=== PATIENT | female | born 1965 | race African-American/Black ===

== ENCOUNTER 2017-05-05 08:29 | Emergency (ER) | payer MEDICAID, OTHER ==
[~2017-05-05] VITALS: Ht 160 cm; Wt 87.3 kg
[~2017-05-05 08:29] MED LIST: CARV6 PO; LISI-661 PO; LORA0.5T2 PO; TYL3 PO
[2017-05-05 08:42] LABS: GLUCOSE,POINT OF CARE 119 MG/DL (70-110)
[2017-05-05] MEDS ORDERED: SACU1TAB7 PO (08:42)
[2017-05-05] MEDS ORDERED: FURO40I IM (08:42)
[2017-05-05] MEDS ORDERED: ATOR20TA86 PO (08:42)
[2017-05-05] MEDS ORDERED: POTA99TA15 PO (08:42)
[2017-05-05] MEDS ORDERED: ASPI-556 PO (08:42)
[2017-05-05] MEDS ORDERED: IBUPROFEN 800 MG TABLET PO ONE (11:00)
[2017-05-05 12:18] VITALS: BP 143/83
== END 2017-05-05 13:05 | disposition home or self-care (01) ==
LOC: EMS 08:30
DX: S86.011A Strain of right Achilles tendon, initial encounter (principal); M77.31 Calcaneal spur, right foot; Z79.82 Long term (current) use of aspirin; Z79.899 Other long term (current) drug therapy; X58.XXXA Exposure to other specified factors, initial encounter; Y93.9 Activity, unspecified; Y92.9 Unspecified place or not applicable; Y99.9 Unspecified external cause status
CPT/HCPCS: 29515; 82962; 99284

== ENCOUNTER 2019-05-19 15:58 | Emergency (ER) | payer OTHER ==
[~2019-05-19] VITALS: Ht 160 cm; Wt 88.6 kg
[~2019-05-19 15:58] MED LIST changes: +ASPI-556 PO; +ATOR20TA86 PO; +FURO40I IM; -LISI-661 PO; -LORA0.5T2 PO; +POTA99TA15 PO; +SACU1TAB7 PO; -TYL3 PO
[2019-05-19] MEDS ORDERED: CHOL50004 PO (16:04)
[2019-05-19 16:28] LABS: APPEARANCE,URINE TURBID (CLEAR); GLUCOSE, URINE (UA) NEGATIVE (NEGATIVE); KETONES,URINE 40 mg/dL (NEGATIVE); LEUKOCYTE ESTERASE ,URINE LARGE (NEGATIVE); NITRATE,URINE POSITIVE (NEGATIVE); OCCULT BLOOD,URINE LARGE (NEGATIVE); PROTEIN,URINE SEE CONFIRM (NEGATIVE)
[2019-05-19 16:31] LABS: BILIRUBIN,URINE PRELIM. POSITIVE (NEGATIVE)
[2019-05-19] MEDS ORDERED: PHENAZOPYRIDINE HCL 100 MG TABLET PO ONE (17:00)
[2019-05-19] MEDS ORDERED: CEPHALEXIN MONOHYDRATE 500 MG CAPSULE PO ONE (17:00)
[2019-05-19 17:06] VITALS: BP 118/72
[2019-05-19 17:09] LABS: SULFOSALICYLIC ACID,URINE 4+ (Negative)
[2019-05-19 17:10] LABS: RBC,URINE >100 /HPF (0-2)
[2019-05-19 17:11] LABS: BACTERIA,URINE Many /HPF (None Seen); SQUAMOUS EPITHELIAL CELL,UR Few /LPF (None Seen); WBC,URINE 51-100 /HPF (0-5)
== END 2019-05-19 17:08 | disposition home or self-care (01) ==
LOC: EMS 16:00
DX: N39.0 Urinary tract infection, site not specified (principal); R31.9 Hematuria, unspecified; I25.10 Atherosclerotic heart disease of native coronary artery without angina pectoris; I25.2 Old myocardial infarction; F15.90 Other stimulant use, unspecified, uncomplicated; Z86.73 Personal history of transient ischemic attack (TIA), and cerebral infarction without residual deficits; Z79.899 Other long term (current) drug therapy; Z87.891 Personal history of nicotine dependence
CPT/HCPCS: 87086

== ENCOUNTER 2019-07-14 09:22 | Emergency (ER) | payer OTHER ==
[~2019-07-14] VITALS: Ht 165.1 cm; Wt 90.9 kg
[~2019-07-14 09:22] MED LIST changes: -ATOR20TA86 PO; +CHOL50004 PO; -FURO40I IM
[2019-07-14] MEDS ORDERED: GLIM2 PO (09:30)
[2019-07-14] MEDS ORDERED: METF-960 PO (09:30)
[2019-07-14 09:35] LABS: GLUCOSE,POINT OF CARE 511 MG/DL (70-110)
[2019-07-14 10:45] LABS: APPEARANCE,URINE CLEAR (CLEAR); GLUCOSE, URINE (UA) >=1000 mg/dL (NEGATIVE); KETONES,URINE 15 mg/dL (NEGATIVE); LEUKOCYTE ESTERASE ,URINE NEGATIVE (NEGATIVE); NITRATE,URINE NEGATIVE (NEGATIVE); OCCULT BLOOD,URINE NEGATIVE (NEGATIVE); PROTEIN,URINE NEGATIVE (NEGATIVE); UROBILINOGEN,URINE 0.2 mg/dL (<=1.0)
[2019-07-14 10:47] LABS: BILIRUBIN,URINE PRELIM. POSITIVE (NEGATIVE)
[2019-07-14 10:59] LABS: BACTERIA,URINE None Seen /HPF (None Seen); RBC,URINE 0-2 /HPF (0-2); SQUAMOUS EPITHELIAL CELL,UR Few /LPF (None Seen); WBC,URINE 0-2 /HPF (0-5)
[2019-07-14] MEDS ORDERED: ONDANSETRON HCL 4 MG TABLET PO ONE (11:00)
[2019-07-14] MEDS ORDERED: RINGERS SOLUTION,LACTATED 1,000 ML IV ONE (11:00)
[2019-07-14] MEDS ORDERED: INSULIN REGULAR, HUMAN 100 UNITS/ML IVP ONE ×3 (11:00→15:00)
[2019-07-14] MEDS ORDERED: HYDROCODONE/ACETAMINOPHEN 10-325 MG TABLET PO ONE (11:00)
[2019-07-14 11:03] LABS: BASOPHILS % (AUTO) 0.5 % (0.0-2.0); EOSINOPHILS % (AUTO) 3.6 % (1.0-6.0); HEMATOCRIT 44.4 % (36-46); LYMPHOCYTES # (AUTO) 1.4 K/uL (1.0-4.8); LYMPHOCYTES % (AUTO) 22.2 % (22.0-44.0); MEAN CORPUSCULAR HEMOGLOBIN 27.4 pg (26.0-34.0); MEAN CORPUSCULAR HGB CONC 31.5 G/dL (31.0-37.0); MEAN CORPUSCULAR VOLUME 87 fL (80-100); MONOCYTES # (AUTO) 0.5 K/uL (0.1-1.0); MONOCYTES % (AUTO) 8.3 % (2.0-9.0); NEUTROPHILS # (AUTO) 4.2 K/uL (1.8-7.7); NEUTROPHILS % (AUTO) 65.4 % (40.0-70.0); PLATELET COUNT (AUTO) 187 K/uL (150-450); RED BLOOD CELL COUNT(AUTO) 5.11 MIL/uL (4.00-5.20); RED CELL DISTRIBUTION WIDTH 13.8 % (11.5-14.5)
[2019-07-14 11:16] LABS: ALBUMIN 3.9 g/dL (3.4-5.0); BILIRUBIN,TOTAL 0.5 mg/dL (0.1-1.0); CALCIUM, TOTAL 9.3 mg/dL (8.8-10.5); CREATININE 1.2 mg/dL (0.60-1.30); POTASSIUM 5.3 mmol/L (3.5-5.1)
[2019-07-14] MEDS ORDERED: SLOWK8 PO (11:16)
[2019-07-14 13:30] LABS: GLUCOSE,POINT OF CARE 364 MG/DL (70-110)
[2019-07-14 15:30] LABS: GLUCOSE,POINT OF CARE 385 MG/DL (70-110)
[2019-07-14 16:10] LABS: GLUCOSE,POINT OF CARE 333 MG/DL (70-110)
[2019-07-14 16:19] VITALS: BP 111/61
== END 2019-07-14 16:25 | disposition home or self-care (01) ==
LOC: EMS 09:25
DX: E11.65 Type 2 diabetes mellitus with hyperglycemia (principal); M79.604 Pain in right leg; R35.0 Frequency of micturition; I25.10 Atherosclerotic heart disease of native coronary artery without angina pectoris; I51.9 Heart disease, unspecified; I25.2 Old myocardial infarction; F19.90 Other psychoactive substance use, unspecified, uncomplicated; Z79.82 Long term (current) use of aspirin; Z79.84 Long term (current) use of oral hypoglycemic drugs
CPT/HCPCS: 36415; 80053; 81001; 82962; 85025; 96361; 96374; 96376; 99283; J1815; J7120; Q0162

== ENCOUNTER 2021-06-08 08:21 | Emergency (ER) | payer MEDICAID, OTHER ==
[~2021-06-08] VITALS: Ht 160 cm; Wt 174.0 kg
[~2021-06-08 08:21] MED LIST changes: +CHOL500013 PO; -CHOL50004 PO; +GLIM2 PO; +METF-960 PO; +POTA8TAB71 PO; -POTA99TA15 PO
[2021-06-08 08:30] VITALS: BP 157/77
== END 2021-06-08 08:33 | disposition left against medical advice (07) ==
LOC: EMS 08:31
DX: D57.1 Sickle-cell disease without crisis (principal); Z53.21 Procedure and treatment not carried out due to patient leaving prior to being seen by health care provider

== ENCOUNTER 2023-04-02 17:13 | Emergency (ER) | payer MEDICAID ==
[~2023-04-02] VITALS: Ht 160 cm; Wt 75.0 kg
[~2023-04-02 17:13] MED LIST changes: +METF-1211 PO; -METF-960 PO
[2023-04-02 17:26] VITALS: BP 113/67; PULSE 79; RESP 18; TEMP 98.3
[2023-04-02] MEDS ORDERED: ASPI-1444 PO (17:39)
[2023-04-02] MEDS ORDERED: ACETAMINOPHEN 500 MG TABLET PO ONE (17:45)
[2023-04-02] MEDS ORDERED: ACET-3385 PO (18:33)
== END 2023-04-02 18:49 | disposition home or self-care (01) ==
LOC: EMS 17:14
DX: S82.61XA Displaced fracture of lateral malleolus of right fibula, initial encounter for closed fracture (principal); I25.10 Atherosclerotic heart disease of native coronary artery without angina pectoris; I50.9 Heart failure, unspecified; F15.90 Other stimulant use, unspecified, uncomplicated; Z87.891 Personal history of nicotine dependence; Z98.890 Other specified postprocedural states; X50.1XXA Overexertion from prolonged static or awkward postures, initial encounter; Y93.89 Activity, other specified; Y92.89 Other specified places as the place of occurrence of the external cause; Y99.8 Other external cause status
CPT/HCPCS: 29515; 82962; 99283

== ENCOUNTER 2023-05-21 12:07 | Emergency (ER) | payer MEDICAID ==
[~2023-05-21 12:07] MED LIST changes: +ACET-3385 PO; +ASPI-1444 PO; -ASPI-556 PO
== END 2023-05-21 13:18 | disposition left against medical advice (07) ==
LOC: EMS 12:29
DX: Z53.21 Procedure and treatment not carried out due to patient leaving prior to being seen by health care provider (principal)
CPT/HCPCS: 99281; Z7502